=== PATIENT | male | born 1960 | race Caucasian/White ===

== ENCOUNTER → 2020-06-04 | Outpatient (CLI) | payer OTHER | LOC: LAB 11:32 | PROVIDERS: ATTEND Podiatrist Foot & Ankle Surgery | DX: Z01.812 Encounter for preprocedural laboratory examination (principal); Z20.828 Contact with and (suspected) exposure to other viral communicable diseases ==

== ENCOUNTER 2020-06-08 12:02 | Day surgery (SDC) | payer OTHER ==
[~2020-06-08] VITALS: Ht 177.8 cm; Wt 108.4 kg
[2020-06-08 12:43] LABS: HEMATOCRIT 48.3 % (42.0-52.0); HEMOGLOBIN 16.9 gm/dL (14.0-18.0)
[2020-06-08 13:24] VITALS: BP 128/72
[2020-06-08 16:39] VITALS: BP 128/72
--- NOTE | 2020-06-13 15:44 | O ---
[facility] [place] [address] OPERATIVE REPORT Name: BJORN MONTGOMERY Room #: DEP [facility] M.Maye.#: [id number] Admission: 06/08/20 Attend Phys: Sammy Peralta DPM Discharge: 06/08/20 Date of : 64 Report #: [id number] THIS REPORT FOR: cc: LAURA FRANCE Daniel R. DPM ~ CC: LAURA Peralta DATE OF SERVICE: 06/08/2020 SURGEON: Sammy Peralta DPM. PREOPERATIVE DIAGNOSIS: Achilles tendinosis with chronic partial rupture, left foot. POSTOPERATIVE DIAGNOSIS: Achilles tendinosis with chronic partial rupture, left foot. PROCEDURE: Repair of left Achilles tendon with Arthrex midsubstance SpeedBridge repair system and placement of allogenic Stravix umbilical graft. ANESTHESIA: General LMA. GRAFT: Stravix frozen umbilical graft. SPECIMENS: Left Achilles tendon. ESTIMATED BLOOD LOSS: Minimal. SUTURES: 2-0 Vicryl, 3-0 Vicryl, 3-0 nylon, #0 Ethibond. HEMOSTASIS: Left thigh tourniquet at 300 mmHg. HARDWARE: Arthrex midsubstance Achilles SpeedBridge system with 2 nonabsorbable calcaneal interference screws and associated FiberTape. COMPLICATIONS: None. DESCRIPTION OF PROCEDURE: The patient was brought to the OR with induction of general anesthesia. The patient was placed prone on the operating table and a well-padded left thigh tourniquet was placed. The patient was positioned and padded appropriately and the left lower extremity was prepped and draped aseptically. The extremity was exsanguinated with inflation of the thigh tourniquet. A longitudinal linear incision was created over the left distal Achilles tendon and posterior calcaneus with a #[address] [address] OPERATIVE REPORT Name: BJORN MONTGOMERY Room #: DEP [facility] Jorge#: [id number] Admission: 06/08/20 Attend Phys: Sammy Peralta DPM Discharge: 06/08/20 Date of : 64 Report #: [id number] dissection utilized to dissect the soft tissue envelope from the Achilles tendon and peritenon. Care was taken to preserve the medial and lateral skin flaps which were retracted and the peritenon was incised and reflected off the Achilles. There was substantial damage with tendinosis and roughly 70% tear to the distal Achilles tendon roughly 6 cm proximal to the calcaneal insertion. There was visible degeneration of the tendon with friable, pale and vascular clotted-type tissue. I curettaged and debrided this loose friable material from the Achilles, which was mostly located on the anterior side of the tendon. The tendon was yellowish and discolored in this area with substantial fibrosis of the soft tissue adhering to the tendon as well as along the substance of the tendon. I thoroughly debrided the tendon with curette and scalpel off all loose, friable and nonviable tissue. I used electrocautery for intraoperative hemostasis as well as sterile saline to maintain moisture. The Arthrex SpeedBridge system was introduced into the proximal portion of the Achilles tendon and a Krackow stitch was utilized along the medial and lateral aspects of the proximal tendon. I then used the supplied instrumentation, which was threaded through the distal Achilles tendon into the proximal stump and exited the posterior aspect of the proximal stump to receive the Krackow sutures. The wire loop suture passer was passed through the cannulated trocar and the proximal sutures were fed through the trocar, which brought them through the distal Achilles stump and exited out the posterior surface of the distal Achilles. The foot was plantar flexed and the FiberWire sutures were then tensioned, joined the proximal and lateral Achilles repair sites together under tension. Two nonabsorbable interference screws were introduced into the medial and lateral calcaneus in standard fashion and the FiberTape was screwed into the calcaneus, both medially and laterally under appropriate tension with the ankle plantar flexed and good apposition between the proximal and distal Achilles tendon repair site. Once adequate tenodesis was performed, I excised redundant Achilles tendon which was puckering at the apposition site. I then lavaged the area with saline and dried and I applied the Stravix umbilical graft to the posterior aspect of the repair site and sutured it with 8 absorbable 3-0 Vicryl sutures. The paratenon was repaired over the Achilles tendon and deep closure of the soft tissue envelope was performed with absorbable 3-0 Vicryl. Subdermal stitch of 3-0 Vicryl was used as well and the skin was closed with 3-0 nylon in a running interlocking stitch reinforced with Steri-Strips. The skin was cleansed and dried. The tourniquet was deflated with normal vascular return to the extremity. The patient was placed in a sterile dressing and a posterior fiberglass splint. He left the operating room with no complications noted. <ELECTRONICALLY SIGNED> By: Sammy Peralta DPM 06/13/20 1544 [id number] [id number] Sammy Peralta DPM /nt
--- NOTE | 2020-06-13 18:06 | PATH ---
[facility] [address] [place] [address] PATHOLOGY RPT PROCEDURE Name: BJORN MONTGOMERY Room #: DEP [facility] [place] M.R.#: [id number] Admission: 06/08/20 Date of : 64 Discharge: 06/08/20 Report #: [id number] Path Case #: [id number] LCA Accession Number: [id number] . 01 Material submitted: . achilles tendon - LEFT ACHILLES TENDON. Modifiers: left . 01 Clinical history: . ACHILLES TENDON REPAIR . 02 Diagnosis: Left Achilles tendon, repair: - Mild acute and chronic inflammation along with fibrin, reparative changes, and hemorrhage, history of Achilles tendon rupture. (IUV:pit 06/13/2020) QTP 06/13/2020 1424 Local . 02 Electronically signed: . Betty Hoyt MD, Pathologist NPI- [id number] . 01 Gross description: . The specimen is received in formalin, labeled "Bjorn Montgomery, left Achilles tendon". Received are multiple segments of pale ro to orange-ro fibrous soft tissue measuring 3.8 x 2.1 x 1.2 cm in aggregate dimensions. Sectioning reveals pale ro to pink-jiménez cut surfaces. The specimen is submitted representatively in cassette A1. (CAA; 06/12/2020) QA/[facility] 06/12/2020 1231 Local . 02 Pathologist provided ICD-10: M76.62 . 02 CPT . 527027 Specimen Comment: A courtesy copy of this report has been sent to [phone] Specimen Comment: Report sent to Performed at: [address], [place] [id number] MD Marvin Ervin MD Phone: [phone] Performed at: [address] [id number] MD Betty Hoyt MD Phone: [phone]
== END 2020-06-08 16:39 | disposition home or self-care (01) ==
LOC: TBA 12:02 → OR 12:02
PROVIDERS: ATTEND Podiatrist Foot & Ankle Surgery
DX: M76.62 Achilles tendinitis, left leg (principal); S86.012A Strain of left Achilles tendon, initial encounter; M25.372 Other instability, left ankle; M24.572 Contracture, left ankle; M10.9 Gout, unspecified; G47.30 Sleep apnea, unspecified; Z98.890 Other specified postprocedural states; X58.XXXA Exposure to other specified factors, initial encounter; Y93.89 Activity, other specified; Y92.89 Other specified places as the place of occurrence of the external cause; Y99.8 Other external cause status
CPT/HCPCS: 50010; 50101; 50386; 51741; 56524; 56526; 56527; 56528; 57091; 57180; 57268; 57487; 62110; 62900; 70005

== ENCOUNTER 2020-11-15 06:08 | Day surgery (SDC) | payer OTHER ==
[~2020-11-15] VITALS: Ht 175.3 cm; Wt 116.6 kg
--- NOTE | ~2020-11-15 | O ---
[facility] [place] [address] OPERATIVE REPORT Name: BJORN MONTGOMERY Room #: DEP [facility] MIgor.#: [id number] Admission: 11/15/20 Attend Phys: Sammy Peralta DPM Discharge: 11/15/20 Date of : 64 Report #: [id number] THIS REPORT FOR: cc: LAURA FRANCE Physician not on staff Sammy Peralta DPM ~ DATE OF SERVICE: 11/15/2020 SURGEON: Sammy Peralta DPM PREOPERATIVE DIAGNOSIS: Soft tissue infection to left Achilles tendon repair site. POSTOPERATIVE DIAGNOSIS: Soft tissue infection to left Achilles tendon repair site. PROCEDURES: 1. Incision and drainage, left Achilles tendon region. 2. Debridement of surgical wound with nonabsorbable suture removal, left Achilles tendon repair site. 3. Primary closure of skin over a wick drain x2. ANESTHESIA: General. INJECTABLES: 30 mL of 0.5% Marcaine plain. HEMOSTASIS: Left thigh tourniquet at 300 mmHg. SUTURES: 2-0 nylon. ESTIMATED BLOOD LOSS: Minimal. CULTURES: Soft tissue, left tendo Achilles region, aerobic/anaerobic x2 (swab and soft tissue culture). COMPLICATIONS: None. DESCRIPTION OF PROCEDURE: The patient was brought to the OR with induction of general anesthesia and placement on the OR table in a prone position. A well-padded left thigh tourniquet was placed and local anesthetic block was given to the left posterior ankle proximal to the surgical site. The extremity was prepped and draped aseptically, exsanguinated with inflation of the tourniquet. A #10 scalpel was used to create a linear incision over the left posterior Achilles tendon repair incision. There were 2 small open draining ulcerations, 1 superior and 1 inferior at the posterior calcaneus. The incision [address] [address] OPERATIVE REPORT Name: VALENTINABJORN BARBER Room #: DEP [facility] Jorge#: [id number] Admission: 11/15/20 Attend Phys: Sammy Peralta DPM Discharge: 11/15/20 Date of : 64 Report #: [id number] incorporated both of those open draining sites. Layered dissection was utilized to mobilize the medial and lateral skin flaps, which were retracted. There was visible nonabsorbable FiberWire and suture, which I was able to remove with scalpel and pickups by cutting the knots and pulling the sutures. There was a nidus of soft tissue infection surrounded by a nonabsorbable suture at the distal aspect of the incision, overlying the soft tissue at the posterior calcaneus. I removed that suture and removed some of the subcutaneous soft tissue that was discolored and infected. I thoroughly inspected the entire soft tissue envelope and I removed all nonabsorbable sutures and devitalized an infected looking tissue. Electrocautery was utilized for hemostasis. The wound was flushed with sterile saline with bacitracin irrigant. The Achilles tendon was fully intact with no defects or signs of infection to it. The repair site was fully healed and the structure of the tendon looked very good. There was no need to debride the substance of the tendon, although I did remove any adherent soft tissue that had adhered to it postoperatively. I then closed the skin with 2-0 nylon in simple interrupted fashion and used 0.24 inch Nu Gauze drain to the superior and inferior aspect of the incision to facilitate drainage. The entire incision was otherwise closed. I did not use any nonabsorbable suture forceps for subcutaneous or dermal skin closure. The skin was cleansed and dried and dressed with Adaptic, 4 x 4s, ABDs, Kerlix and Justin bandage. The tourniquet was deflated and the patient was transferred to the hospital bed and left the OR with no pain or complications noted. By: 0501 0523 Sammy Peralta DPM /paulo
[~2020-11-15 06:08] MED LIST: ADVIL200 M1 PO; DICLOXACILLIN500 MG PO
[2020-11-15 07:01] LABS: HEMATOCRIT 48.4 % (42.0-52.0); HEMOGLOBIN 16.4 gm/dL (14.0-18.0)
[2020-11-15 07:40] VITALS: BP 137/85
[2020-11-15 09:14] VITALS: BP 137/85
--- NOTE | 2020-11-15 12:40 | NUR ---
CONSULTED TO PLACE A PICC FOR A PATIENT NEEDING HOME IV ABX. ORDER AND CONSENT NOTED. DISCUSSED BENIFITS AND RISKS WITH THE PATIENT AND HE VERIFIED UNDERSTANDING OF RISK FOR INFECTION AND DVT. THE RIGHT UPPER ARM WAS WIDLEY PATENT. A #4F SINGLE LUMEN PICC WAS TRIMMED TO 50CM AND ADVANCED WITHOUT DIFFICULTY. A STAT CHEST XRAY CONFIRMED LINE IN APPROPRIATE POSITION FOR USE
== END 2020-11-15 11:08 | disposition home or self-care (01) ==
LOC: OR 06:08 → TBA 06:11 → OR 11:08
PROVIDERS: ATTEND Podiatrist Foot & Ankle Surgery
DX: T81.49XA Infection following a procedure, other surgical site, initial encounter (principal); M79.89 Other specified soft tissue disorders; Z98.890 Other specified postprocedural states; Z79.899 Other long term (current) drug therapy; Y83.8 Other surgical procedures as the cause of abnormal reaction of the patient, or of later complication, without mention of misadventure at the time of the procedure
CPT/HCPCS: 27000; 50101; 50386; 56524; 56525; 57091; 62110; 62900; 70005